=== PATIENT | female | born 1995 | race Caucasian/White ===

== ENCOUNTER 2017-11-01 09:27 | Emergency (ER) | END 2017-11-01 13:07 | disposition home or self-care (01) ==

== ENCOUNTER 2018-06-05 15:13 | Outpatient (CLI) | END 2018-06-05 19:00 | disposition home or self-care (01) ==

== ENCOUNTER 2018-06-08 11:12 | Outpatient (CLI) | END 2018-06-08 16:20 | disposition home or self-care (01) ==

== ENCOUNTER 2018-06-19 18:06 | Inpatient (IN) | END 2018-06-24 18:40 | disposition home or self-care (01) | DRG 805 ==

== ENCOUNTER 2018-06-30 07:57 | Emergency (ER) | END 2018-06-30 09:44 | disposition home or self-care (01) ==

== ENCOUNTER 2018-07-09 11:59 | Emergency (ER) | payer MEDICAID ==
[~2018-07-09] VITALS: Ht 162.6 cm; Wt 68.2 kg
[~2018-07-09 11:59] MED LIST: CEPH-443 PO; IBUP-1542 PO; PNV11TAB PO
[2018-07-09 12:03] VITALS: Ht 162.6 cm; Wt 68.2 kg
--- NOTE | 2018-07-09 12:34 | ERD ---
ER Documentation Chief Complaint Chief Complaint Complains of pelvic pain since this am HPI 23-year-old female complaining of vaginal pain, dysuria, and pelvic pain times 20 days. Patient states that she had a normal vaginal delivery 20 days ago, and started having this problem ever since. She was seen here 2 weeks ago, was diagnosed with a urinary tract infection. She took the antibiotics prescribed for her and finish all. However, her symptoms did not resolve. Patient reports subjective fever this morning. She states that she is still having vaginal bleeding, quantity ebbs and flows. Patient and is concerned for possible retained products. Patient did not take any antipyretics at home. ROS All systems reviewed and are negative except as per history of present illness. Medications Home Meds Active Scripts Acetaminophen* (Tylophen*) 500 Mg Capsule, 1 CAP PO Q6H PRN for PAIN AND OR ELEVATED TEMP, #20 CAP Prov:PATRICK GOMES. FINANCIAL WRITER 07/09/18 Doxycycline Hyclate* (Doxycycline Hyclate*) 100 Mg Tablet.dr, 100 MG PO BID for 10 Days, TAB Prov:PATRICK GOMES. FINANCIAL WRITER 07/09/18 Metronidazole* (Flagyl*) 500 Mg Tablet, 500 MG PO TID for 7 Days, TAB Prov:PATRICK GOMES. FINANCIAL WRITER 07/09/18 Cephalexin* (Keflex*) 500 Mg Capsule, 500 MG PO BID for 7 Days, CAP Prov:SERENITY CAMPA PA-C 06/30/18 Ibuprofen* (Ibuprofen*) 600 Mg Tablet, 600 MG PO Q6, #60 TAB 0 Refills Prov:WAQAR JANE MD 06/23/18 Reported Medications [id number] ( 19) 1 Each Tablet, 1 TAB PO DAILY, TAB 06/21/18 Allergies Allergies: Coded Allergies: No Known Allergy (Unverified , 06/05/18) PMhx/Soc History of Surgery: No Anesthesia Reaction: No Hx Neurological Disorder: No Hx Respiratory Disorders: No Hx Cardiac Disorders: No Hx Psychiatric Problems: No Hx Miscellaneous Medical Probl: No Hx Alcohol Use: No Hx Substance Use: No Hx Tobacco Use: No Physical Exam Vitals Vital Signs Date Temp Pulse Resp B/P (MAP) Pulse Ox O2 O2 Flow FiO2 Time Delivery Rate 07/09/18 98.0 63 16 119/79 99 Room Air 15:35 (92) 07/09/18 98.1 65 20 119/63 94 12:03 (81) Physical Exam General: Well-developed, well-nourished, conscious and coherent, in no distress Skin: Warm and dry without rash, good texture and turgor Head: Normocephalic without evidence of trauma Chest: Normal AP diameter. Good expansion without retractions. Nontender. Lungs are clear to auscultate bilaterally with good tidal volume Heart: Regular rate and rhythm. No murmur, rub, or gallops heard Abdomen: Soft, periumbilical tenderness without masses, guarding, or rebound. No pelvic tenderness. Bowel sounds are active. No hepatosplenomegaly : External genitalia erythematous and burning upon light touch. Purulent discharge noted in the vaginal canal. Cervix erythematous with cervical motion tenderness. Back: Without spinal or CVA tenderness Extremities: Full range of motion. Good strength bilaterally. No erythema, ecchymosis, or edema. Peripheral pulses are intact. Sensation intact Neuro: Alert and oriented 4, GCS 15. Result Diagram: 07/09/18 1317 07/09/18 1317 Results 24 hrs Laboratory Tests Test 07/09/18 13:17 White Blood Count 5.3 10^3/ul Red Blood Count 4.56 10^6/ul Hemoglobin 13.2 g/dl Hematocrit 40.0 % Mean Corpuscular Volume 87.7 fl Mean Corpuscular Hemoglobin 28.9 pg Mean Corpuscular Hemoglobin Concent 33.0 g/dl Red Cell Distribution Width 13.0 % Platelet Count 475 10^3/UL Mean Platelet Volume 9.2 fl Immature Granulocytes % 0.200 % Neutrophils % 46.3 % Lymphocytes % 34.5 % Monocytes % 7.1 % Eosinophils % 11.1 % Basophils % 0.8 % Nucleated Red Blood Cells % 0.0 /100WBC Immature Granulocytes # 0.010 10^3/ul Neutrophils # 2.5 10^3/ul Lymphocytes # 1.8 10^3/ul Monocytes # 0.4 10^3/ul Eosinophils # 0.6 10^3/ul Basophils # 0.0 10^3/ul Nucleated Red Blood Cells # 0.0 10^3/ul Urine Color YELLOW Urine Clarity CLEAR Urine pH 5.0 Urine Specific [place] 1.027 Urine Ketones NEGATIVE mg/dL Urine Nitrite NEGATIVE mg/dL Urine Bilirubin NEGATIVE mg/dL Urine Urobilinogen NEGATIVE mg/dL Urine Leukocyte Esterase TRACE Gertrude/ul Urine Microscopic RBC 1 /HPF Urine Microscopic WBC 18 /HPF Urine Mucus FEW /HPF Urine Hemoglobin 1+ mg/dL Urine Glucose NEGATIVE mg/dL Urine Total Protein NEGATIVE mg/dl Sodium Level 144 mmol/L Potassium Level 4.6 mmol/L Chloride Level 104 mmol/L Carbon Dioxide Level 23 mmol/L Anion Gap 17 Blood Urea Nitrogen 19 mg/dl Creatinine 0.56 mg/dl Est Glomerular Filtrat Rate mL/min > 60 mL/min Glucose Level 94 mg/dl Calcium Level 9.5 mg/dl Total Bilirubin 0.4 mg/dl Direct Bilirubin 0.00 mg/dl Indirect Bilirubin 0.4 mg/dl Aspartate Amino Transf (AST/SGOT) 33 IU/L Alanine Aminotransferase (ALT/SGPT) 34 IU/L Alkaline Phosphatase 158 IU/L Total Protein 8.0 g/dl Albumin 4.5 g/dl Globulin 3.50 g/dl Albumin/Globulin Ratio 1.28 Lipase 92 U/L Beta HCG, Quantitative < 2.4 mIU/ml Current Medications Medications Dose Sig/Corrie Start Time Status Last (Trade) Ordered Route PRN Stop Time Admin Dose Reason Admin Fluconazole 150 mg ONCE ONCE 07/09/18 DC 07/09/18 (Diflucan) PO 15:00 14:52 07/09/18 15:01 Ceftriaxone 250 mg ONCE ONCE 07/09/18 DC 07/09/18 Sodium IM 15:00 14:53 (Rocephin) 07/09/18 15:01 PROCEDURE: US Pelvis. CLINICAL INDICATION: Vaginal bleeding TECHNIQUE: Multiple sonographic images of the pelvis were obtained utilizing transabdominal technique. The images were reviewed on a PACS workstation. COMPARISON: None. FINDINGS: The uterus is normal in size with a normal appearance of the myometrium. The uterus measures 9.2 x 6.0 x 9.7 cm. There is a moderate amount of echogenic debris and fluid within the endometrium. There is no increased vascularity. The ovaries are normal in size and echogenicity. Normal Doppler flow is identified in both ovaries. The right ovary measures 3.7 x 1.4 cm. The left ovary measures 3.7 x 1.5 x 1.9 cm. No free fluid is present within the pelvis. RPTAT: AA IMPRESSION: Moderate amount of echogenic debris and fluid within the endometrium. No evidence of increased vascularity to suggest retained products of conception. .Blas Mittal MD, Date Time Electronically viewed and signed by .Blas Mittal MD, on 07/09/2018 13:57 .S/ CC: PATRICK GOMES FINANCIAL WRITER Procedures/MDM 23-year-old female who is 20 days presents the ED complaining of vaginal pain, abdominal pain, and vaginal bleeding. CBC: no e/o of systemic infection or severe anemia CMP: no e/o severe acidosis, alkalosis, renal failure, diabetic ketoacidosis, liver disease Lipase: no e/o pancreatitis Urine: no e/o acute infection or hematuria Urine culture: Pending Beta-hCG quant: <2.4 Ultrasound showed moderate amount of echogenic degrees and fluid within the endometrium, no evidence of increased vascularity to the suggest retained products of conception. The uterus is normal in size for her stage. I performed the pelvic exam, which showed erythematous and burning vaginal introitus, suggestive of yeast infection. Diflucan 150 mg p.o. given to the patient. Patient also have cervical motion tenderness, suspicious for pelvic inflammatory disease. Rocephin 250 mg IM also given. Vaginal wet mount was performed by the lab, which showed negative yeast or hyphae, positive clue cells, and no motile Trichomonas. Patient appear to have a bacterial vaginosis. Patient is , in a monogamous relationship. Low suspicion for new onset chlamydia or gonorrhea. Patient appears well, stable for discharge and outpatient management. Education provided patient regarding pump and dump breast milk while taking doxycycline. Medical decision making shared with patient and family. Education provided to patient and family. Patient and family expressed understanding of the plan. Medications on discharge: Doxycycline, Flagyl. Follow-up: Primary care provider in 2-3 days or return to ED if worse. Disclaimer: Inadvertent spelling and grammatical errors are likely due to EHR/di ctation software use and do not reflect on the overall quality of patient care. Also, please note that the electronic time recorded on this note does not necessarily reflect the actual time of the patient encounter. Departure Diagnosis: Primary Impression: Acute pain in female pelvis Additional Impressions: PID (acute pelvic inflammatory disease) Bacterial vaginosis Condition: Stable PATRICK GOMES NP Jul 09, 2018 12:34
[2018-07-09] MEDS ORDERED: CEFTRIAXONE 250 MG INJ IM ONE (15:00)
[2018-07-09] MEDS ORDERED: FLUCONAZOLE 150 MG TAB PO ONE (15:00)
[2018-07-09] MEDS ORDERED: DOXY100T20 PO (15:21)
[2018-07-09] MEDS ORDERED: METR500T PO (15:21)
[2018-07-09] MEDS ORDERED: ACET500C5 PO (15:24)
[2018-07-09 15:35] VITALS: BP 119/79; PULSE 63; RESP 16
== END 2018-07-09 15:36 | disposition home or self-care (01) ==
LOC: FTE 11:59
DX: O86.13 Vaginitis following delivery (principal); R40.2412 Glasgow coma scale score 13-15, at arrival to emergency department; B96.89 Other specified bacterial agents as the cause of diseases classified elsewhere; R10.2 Pelvic and perineal pain
CPT/HCPCS: 76856; 80053; 81001; 83690; 84702; 85025; 87086; 87210; 96372; J0696; Z7502

== ENCOUNTER 2018-08-29 06:45 | Emergency (ER) | payer MEDICAID ==
[~2018-08-29] VITALS: Ht 152.4 cm; Wt 69.3 kg
[~2018-08-29 06:45] MED LIST changes: +ACET500C5 PO; +DOXY100T20 PO; +METR500T PO
[2018-08-29 06:48] VITALS: BP 120/59; PULSE 89; RESP 22; Ht 152.4 cm; Wt 69.3 kg
[2018-08-29] MEDS ORDERED: ACETAMINOPHEN 500 MG TAB PO STA (07:15)
[2018-08-29] MEDS ORDERED: AMOX1TAB10 PO (07:18)
[2018-08-29] MEDS ORDERED: ACET500C5 PO (07:18)
[2018-08-29] MEDS ORDERED: IBUP800T48 PO (07:18)
[2018-08-29] MEDS ORDERED: IBUPROFEN 800 MG TAB PO ONE (07:30)
--- NOTE | 2018-08-29 08:08 | ERD ---
ER Documentation Chief Complaint Chief Complaint sore throat and body pain x 5 days HPI 23-year-old female presenting with sore throat and body aches times 5 days. Patient has no runny nose and no cough. Has not taken medication today for symptoms. Denies any medical problems. NKDA. Surgical history denies. Social history denies ROS All systems reviewed and are negative except as per history of present illness. Medications Home Meds Active Scripts Ibuprofen* (Motrin*) 800 Mg Tab, 800 MG PO Q6, #30 TAB Prov:SATISH HORAN PA-C 08/29/18 Acetaminophen* (Tylophen*) 500 Mg Capsule, 2 CAP PO Q8H PRN for PAIN AND OR ELEVATED TEMP, #20 CAP Prov:SATISH HORAN PA-C 08/29/18 Amoxicillin/Potassium Clav (Amox-Clav 875-125 mg Tablet) 875-125 mg Tab, 1 TAB PO BID for 7 Days, #14 TAB Prov:SATISH HORAN PA-C 08/29/18 Acetaminophen* (Tylophen*) 500 Mg Capsule, 1 CAP PO Q6H PRN for PAIN AND OR ELEVATED TEMP, #20 CAP Prov:PATRICK GOMES NP 07/09/18 Doxycycline Hyclate* (Doxycycline Hyclate*) 100 Mg Tablet.dr, 100 MG PO BID for 10 Days, TAB Prov:PATRICK GOMES NP 07/09/18 Metronidazole* (Flagyl*) 500 Mg Tablet, 500 MG PO TID for 7 Days, TAB Prov:PATRICK GOMES NP 07/09/18 Cephalexin* (Keflex*) 500 Mg Capsule, 500 MG PO BID for 7 Days, CAP Prov:SERENITY CAMPA PA-C 06/30/18 Ibuprofen* (Ibuprofen*) 600 Mg Tablet, 600 MG PO Q6, #60 TAB 0 Refills Prov:WAQAR JANE MD 06/23/18 Reported Medications [id number] ( 19) 1 Each Tablet, 1 TAB PO DAILY, TAB 06/21/18 Allergies Allergies: Coded Allergies: No Known Allergy (Unverified , 06/05/18) PMhx/Soc History of Surgery: No Anesthesia Reaction: No Hx Neurological Disorder: No Hx Respiratory Disorders: No Hx Cardiac Disorders: No Hx Psychiatric Problems: No Hx Miscellaneous Medical Probl: No Hx Alcohol Use: No Hx Substance Use: No Hx Tobacco Use: No FmHx Family History: No diabetes, No coronary disease, No other Physical Exam Vitals Vital Signs Date Temp Pulse Resp B/P (MAP) Pulse Ox O2 O2 Flow FiO2 Time Delivery Rate 08/29/18 100.4 07:23 08/29/18 100.4 07:22 08/29/18 100.4 89 22 120/59 97 06:48 (79) Physical Exam GENERAL: The patient is well-appearing, well-nourished, in no acute distress HEENT: Erythema noted to bilateral tonsils with exudate. Uvula midline. Extraocular movements intact. No erythema or injection of the sclera. No purulence. NECK: C-spine is soft and supple. There is no meningismus. There is no cervical lymphadenopathy. CHEST: Clear to auscultation bilaterally. There are no rales, wheezes or rhonchi. HEART: Regular rate and rhythm. No murmurs, clicks, rubs or gallops. Results 24 hrs Current Medications Medications Dose Sig/Corrie Start Time Status Last (Trade) Ordered Route PRN Stop Time Admin Dose Reason Admin Ibuprofen 800 mg ONCE ONCE 08/29/18 DC 08/29/18 (Motrin) PO 07:30 07:22 08/29/18 07:31 1,000 mg ONCE STAT 08/29/18 DC 08/29/18 Acetaminophen PO 07:15 07:23 (Tylenol 08/29/18 07:17 Tab) Procedures/MDM ER course: Ibuprofen and Tylenol given ED. MDM: 23-year-old female presenting with findings consistent with strep throat. Patient will be treated with antibiotics. I have low suspicion for peritonsillar retropharyngeal abscess. A low suspicion for bacterial meningitis or sepsis. I have low suspicion for pneumonia. Patient is discharged stricter precautions and told to follow-up with primary care within 1-2 days for close evaluation. Patient is told symptoms change or worsen to return immediately to the ER. All questions answered at discharge Departure Diagnosis: Primary Impression: Sore throat Condition: Stable Patient Instructions: Strep Throat Referrals: COMMUNITY CLINICS YOU HAVE RECEIVED A MEDICAL SCREENING EXAM AND THE RESULTS INDICATE THAT YOU DO NOT HAVE A CONDITION THAT REQUIRES URGENT TREATMENT IN THE EMERGENCY DEPARTMENT. FURTHER EVALUATION AND TREATMENT OF YOUR CONDITION CAN WAIT UNTIL YOU ARE SEEN IN YOUR DOCTORS OFFICE WITHIN THE NEXT 1-2 DAYS. IT IS YOUR RESPONSIBILITY TO MAKE AN APPOINTMENT FOR FOLOW-UP CARE. IF YOU HAVE A PRIMARY DOCTOR --you should call your primary doctor and schedule an appointment IF YOU DO NOT HAVE A PRIMARY DOCTOR YOU CAN CALL OUR PHYSICIAN REFERRAL HOTLINE AT IF YOU CAN NOT AFFORD TO SEE A PHYSICIAN YOU CAN CHOSE FROM THE FOLLOWING [facility] CL[facility]ICS [facility] [id number] [facility] [address] [facility] [address] [facility] [address] [facility] [facility] [facility] [address] [facility] [address] [facility] [address] [facility]. [facility] [address] Additional Instructions: FOLLOW UP WITH YOUR PRIMARY CARE PHYSICIAN TOMORROW.Return to this facility if you are not improving as expected. SATISH HORAN PA-C Aug 29, 2018 08:08
== END 2018-08-29 07:54 | disposition home or self-care (01) ==
LOC: FTE 06:45
DX: J02.9 Acute pharyngitis, unspecified (principal)
CPT/HCPCS: Z7610 ×2; 99283

== ENCOUNTER → 2019-01-30 | Emergency (ER) | payer MEDICAID ==
[~2019-01-30] VITALS: Ht 160 cm; Wt 75.5 kg
[~2019-01-30] MED LIST changes: +ACET325T33 PO; +AMOX1TAB10 PO; +IBUP-1561 PO; +IBUP800T48 PO
[2019-01-30 19:49] VITALS: BP 137/86; PULSE 83; RESP 18; Ht 160 cm; Wt 75.5 kg
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
== END | disposition home or self-care (01) ==
LOC: FTE 19:40
DX: M54.2 Cervicalgia (principal)
CPT/HCPCS: 99282